=== PATIENT | male | born 1960 | race Two or more races ===

== ENCOUNTER 2017-04-12 13:08 | Emergency (ER) | payer MEDICAID, OTHER ==
[~2017-04-12] VITALS: Ht 149.9 cm; Wt 81.6 kg
[2017-04-12] MEDS ORDERED: LORazepam 2MG/ML-1ML VIAL IM ONE (14:00)
[2017-04-12 14:21] VITALS: BP 130/86
== END 2017-04-12 15:21 | disposition home or self-care (01) ==
LOC: ER 13:10
DX: F10.10 Alcohol abuse, uncomplicated (principal)
CPT/HCPCS: 96372; 99283; J2060